=== PATIENT | female | born 1980 | race Hispanic/Latino ===

== ENCOUNTER 2017-04-02 06:56 | Emergency (ER) | payer SELFPAY ==
[2017-04-02 07:26] LABS: HCG,QUAL RESULT NEGATIVE (NEGATIVE)
[2017-04-02] MEDS ORDERED: ONDANSETRON HCL 4 MG/2 ML VIAL ONE (07:34)
[2017-04-02 07:35] LABS: APPEARANCE,URINE CLEAR (CLEAR); BILIRUBIN,URINE NEGATIVE (NEGATIVE); COLOR,URINE ORANGE (YELLOW); GLUCOSE, URINE (UA) 250 mg/dL (NEGATIVE); KETONES,URINE 5 mg/dL (NEGATIVE); LEUKOCYTE ESTERASE ,URINE MODERATE (NEGATIVE); NITRATE,URINE POSITIVE (NEGATIVE); OCCULT BLOOD,URINE LARGE (NEGATIVE); PROTEIN,URINE 100 (NEGATIVE); UROBILINOGEN,URINE >=8.0 mg/dL (0.2-1.0)
[2017-04-02] MEDS ORDERED: HYDROMORPHONE HCL 0.5 MG/0.5 ML ML ONE (07:35)
[2017-04-02 07:37] LABS: BASOPHILS % (AUTO) 0.8 % (0.0-5.0); EOSINOPHILS % (AUTO) 0.5 % (0.0-8.0); HEMATOCRIT 46.7 % (36-48); LYMPHOCYTES % (AUTO) 18.3 % (21.0-51.0); MEAN CORPUSCULAR HGB CONC 34.1 g/dL (32.0-36.0); MEAN CORPUSCULAR VOLUME 84.9 fL (79-99); MONOCYTES % (AUTO) 6.4 % (3.0-13.0); NUCLEATED RED BLOOD CELLS 0.1 % (0.0-0.19); PLATELET COUNT (AUTO) 334 K/uL (130-400); WHITE BLOOD COUNT (AUTO) 13.6 K/uL (4.8-10.8)
[2017-04-02 07:39] LABS: BACTERIA,URINE Rare /HPF (None Seen); SQUAMOUS EPITHELIAL CELL,UR Rare /LPF (0-2); WBC,URINE 0-1 /HPF (0-1)
[2017-04-02 09:00] LABS: CREATININE 0.8 mg/dL (0.5-1.5)
[2017-04-02 09:05] LABS: ALBUMIN 3.5 g/dL (3.5-5.0); BILIRUBIN,TOTAL 0.3 mg/dL (0.2-1.0); TOTAL PROTEIN, SERUM 7.6 g/dL (6.0-8.3)
[2017-04-02] MEDS ORDERED: LEVOFLOXACIN 500 MG TABLET ONE (09:26)
[2017-04-02] MEDS ORDERED: PHENAZOPYRIDINE HCL 200 MG TABLET ONE (09:27)
[2017-04-02] MEDS ORDERED: SODIUM CHLORIDE 0.9% 1000ML 1,000 ML IV ONE (09:31)
== END 2017-04-02 09:55 | disposition home or self-care (01) ==
LOC: EDH 06:56
DX: N10 Acute pyelonephritis (principal); Z87.442 Personal history of urinary calculi; Z90.49 Acquired absence of other specified parts of digestive tract; R42 Dizziness and giddiness
CPT/HCPCS: 36415; 74176; 80053; 81001; 81025; 85025; 87088; 96361; 96374; 96375; 99285; J1170; J2405; J7030

== ENCOUNTER 2018-06-08 12:43 | Emergency (ER) | payer OTHER | END 2018-06-08 13:49 | disposition home or self-care (01) | LOC: EDH 12:43 | DX: S13.4XXA Sprain of ligaments of cervical spine, initial encounter (principal); Z90.49 Acquired absence of other specified parts of digestive tract; Z98.51 Tubal ligation status; X58.XXXA Exposure to other specified factors, initial encounter; Y93.89 Activity, other specified; Y92.89 Other specified places as the place of occurrence of the external cause; Y99.8 Other external cause status | CPT/HCPCS: 99281 ==

== ENCOUNTER 2020-09-04 18:04 | Emergency (ER) | payer OTHER ==
[~2020-09-04] VITALS: Ht 157.5 cm; Wt 113.4 kg
[2020-09-04 18:25] LABS: APPEARANCE,URINE SLIGHTLY CLOUDY (CLEAR); BILIRUBIN,URINE Negative (NEGATIVE); COLOR,URINE Yellow (YELLOW); GLUCOSE, URINE (UA) Negative (NEGATIVE); KETONES,URINE Negative (NEGATIVE); LEUKOCYTE ESTERASE ,URINE Moderate (NEGATIVE); NITRATE,URINE Negative (NEGATIVE); OCCULT BLOOD,URINE Negative (NEGATIVE); PH,URINE 7.5 (5.0-8.0); PROTEIN,URINE Negative (NEGATIVE)
[2020-09-04 18:26] LABS: HCG,QUAL RESULT NEGATIVE (NEGATIVE)
[2020-09-04 18:35] LABS: BACTERIA,URINE Few /HPF (None Seen)
[2020-09-04 18:37] LABS: SQUAMOUS EPITHELIAL CELL,UR Moderate /HPF (0-2)
[2020-09-04 18:49] LABS: BASOPHILS % (AUTO) 0.3 % (0.0-5.0); EOSINOPHILS % (AUTO) 1.3 % (0.0-8.0); HEMATOCRIT 45.7 % (36-48); LYMPHOCYTES % (AUTO) 11.6 % (21.0-51.0); MEAN CORPUSCULAR HEMOGLOBIN 29.3 pg (27.0-33.0); MEAN CORPUSCULAR VOLUME 88.7 fL (79-99); MONOCYTES % (AUTO) 8.5 % (3.0-13.0); NEUTROPHILS % (AUTO) 77.3 % (40.0-77.0); PLATELET COUNT (AUTO) 399 K/uL (130-400); RED BLOOD CELL COUNT(AUTO) 5.15 MIL/uL (4.00-5.50); RED CELL DISTRIBUTION WIDTH 13.5 % (11.0-15.5); WHITE BLOOD COUNT (AUTO) 12.2 K/uL (4.8-10.8)
[2020-09-04 18:54] VITALS: BP 135/94
[2020-09-04] MEDS ORDERED: KETOROLAC 30MG VIAL (30MG/ML) ONE (18:55)
[2020-09-04 19:00] LABS: POTASSIUM 3.6 mmol/L (3.5-5.1)
[2020-09-04] MEDS ORDERED: KETOROLAC 30MG VIAL (30MG/ML) IV ONE (19:00)
[2020-09-04] MEDS ORDERED: ACETAMINOPHEN 500 MG TABLET PO ONE (19:00)
[2020-09-04] MEDS ORDERED: CEFTRIAXONE 1G VIAL IVP ONE (19:00)
[2020-09-04] MEDS ORDERED: 0.9%NACL 1000ML 1,000 ML IV ONE (19:00)
[2020-09-04 19:02] LABS: CRP QUANTITATIVE 54.2 mg/L (0.00-9.0)
[2020-09-04 19:05] LABS: ALBUMIN 3.4 g/dL (3.5-5.0); BILIRUBIN,TOTAL 0.2 mg/dL (0.2-1.0); TOTAL PROTEIN, SERUM 7.7 g/dL (6.0-8.3)
[2020-09-04] MEDS ORDERED: CEPH500B PO (19:58)
[2020-09-04] MEDS ORDERED: KETO10 PO (20:00)
[2020-09-04] MEDS ORDERED: ONDA4TAB10 PO (20:00)
[2020-09-04] MEDS ORDERED: TAMS-1 PO (20:21)
[2020-09-04 20:25] VITALS: BP 124/78
== END 2020-09-04 20:31 | disposition home or self-care (01) ==
LOC: EDH 18:04
DX: N20.0 Calculus of kidney (principal); N39.0 Urinary tract infection, site not specified; E66.9 Obesity, unspecified; Z79.899 Other long term (current) drug therapy; Z79.1 Long term (current) use of non-steroidal anti-inflammatories (NSAID)
CPT/HCPCS: 36415; 74176; 80053; 81001; 81025; 83605; 85025; 86140; 87040 ×2; 87088; 96361; 96374; 96375; 99284; J0696; J1885; J7030

== ENCOUNTER 2020-09-07 08:48 | Emergency (ER) | payer OTHER ==
[~2020-09-07] VITALS: Ht 157.5 cm; Wt 113.4 kg
[~2020-09-07 08:48] MED LIST: CEPH500B PO; KETO10 PO; ONDA4TAB10 PO; TAMS-1 PO
[2020-09-07 08:49] VITALS: BP 139/103
[2020-09-07] MEDS ORDERED: ONDANSETRON 4MG INJ ONE (10:40)
[2020-09-07] MEDS ORDERED: KETOROLAC 30MG VIAL (30MG/ML) ONE (10:40)
[2020-09-07] MEDS ORDERED: MORPHINE 4 MG SYG ONE (10:40)
[2020-09-07] MEDS ORDERED: KETOROLAC 30MG VIAL (30MG/ML) IV SCH (11:00)
[2020-09-07] MEDS ORDERED: MORPHINE 4 MG SYG IV SCH (11:00)
[2020-09-07] MEDS ORDERED: ONDANSETRON 4MG INJ IVP SCH (11:00)
[2020-09-07 11:18] LABS: BASOPHILS % (AUTO) 0.4 % (0.0-5.0); EOSINOPHILS % (AUTO) 0.5 % (0.0-8.0); HEMATOCRIT 47.8 % (36-48); LYMPHOCYTES % (AUTO) 31.5 % (21.0-51.0); MEAN CORPUSCULAR HEMOGLOBIN 29.2 pg (27.0-33.0); MEAN CORPUSCULAR HGB CONC 32.4 g/dL (32.0-36.0); MEAN CORPUSCULAR VOLUME 90.2 fL (79-99); NEUTROPHILS % (AUTO) 56.9 % (40.0-77.0); PLATELET COUNT (AUTO) 244 K/uL (130-400); RED CELL DISTRIBUTION WIDTH 13.8 % (11.0-15.5); WHITE BLOOD COUNT (AUTO) 5.7 K/uL (4.8-10.8)
[2020-09-07 11:25] LABS: CREATININE 0.9 mg/dL (0.5-1.5); POTASSIUM 3.6 mmol/L (3.5-5.1)
[2020-09-07 11:30] LABS: ALBUMIN 3.3 g/dL (3.5-5.0); BILIRUBIN,TOTAL 0.2 mg/dL (0.2-1.0); TOTAL PROTEIN, SERUM 7.5 g/dL (6.0-8.3)
[2020-09-07 13:41] VITALS: BP 114/56
[2020-09-07 14:24] LABS: APPEARANCE,URINE CLEAR (CLEAR); BILIRUBIN,URINE NEGATIVE (NEGATIVE); COLOR,URINE YELLOW (YELLOW); GLUCOSE, URINE (UA) NEGATIVE (NEGATIVE); KETONES,URINE NEGATIVE (NEGATIVE); LEUKOCYTE ESTERASE ,URINE NEGATIVE (NEGATIVE); NITRATE,URINE NEGATIVE (NEGATIVE); OCCULT BLOOD,URINE NEGATIVE (NEGATIVE); PROTEIN,URINE NEGATIVE (NEGATIVE); UROBILINOGEN,URINE 0.2 mg/dL (0.2-1.0)
[2020-09-07 16:10] VITALS: BP 111/48
[2020-09-07] MEDS ORDERED: MORPHINE 4 MG SYG IV ONE (16:30)
[2020-09-07] MEDS ORDERED: TRAM-355 PO (18:27)
[2020-09-07] MEDS ORDERED: PHEN-847 PO (18:27)
[2020-09-07 18:51] VITALS: BP 127/74
== END 2020-09-07 18:53 | disposition home or self-care (01) ==
LOC: EDH 08:48
DX: R33.9 Retention of urine, unspecified (principal); R11.2 Nausea with vomiting, unspecified; R50.9 Fever, unspecified; E66.9 Obesity, unspecified; Z87.442 Personal history of urinary calculi; Z79.1 Long term (current) use of non-steroidal anti-inflammatories (NSAID); Z79.899 Other long term (current) drug therapy
CPT/HCPCS: 36415; 51701; 80053; 81003; 83605; 85025; 87040 ×2; 96374; 96375; 96376; 99284; J1885; J2270 ×2; J2405

== ENCOUNTER 2025-01-24 16:18 | Emergency (ER) | payer SELFPAY ==
[~2025-01-24] VITALS: Ht 157.5 cm; Wt 102.1 kg
[~2025-01-24 16:18] MED LIST changes: +ONDA-243 PO; -ONDA4TAB10 PO; +PHEN-847 PO; -TAMS-1 PO; +TAMS-55 PO; +TRAM-543 PO
--- NOTE | 2025-01-24 17:34 | HMCIMG ---
EXAM: CT Head Without IV contrast. CLINICAL HISTORY: head injury, now vision changes TECHNIQUE: Axial computed tomography images of the head/brain without intravenous contrast. COMPARISON: None provided. FINDINGS: BRAIN: No evidence of acute hemorrhage. No mass lesion. No CT evidence for acute territorial infarct. No midline shift or extra-axial collections. VENTRICLES: No hydrocephalus. ORBITS: The orbits are unremarkable. SINUSES AND MASTOIDS: The paranasal sinuses and mastoid air cells are clear. BONES: No fracture. SOFT TISSUES: Unremarkable. IMPRESSION: No acute intracranial abnormality. /[place]
[2025-01-24] MEDS: HYDROcodone/APAP 5/325 1 TAB TABLET PO ONE (17:41)
--- NOTE | 2025-01-24 17:43 | ERN ---
ED Note History of Present Illness Stated Complaint: HEADACHE Chief Complaint: Headache Time Seen by MD: 16:33 Time Seen by Midlevel: 16:36 Dictation: 44-year-old female with a history of anxiety coming in with complaints of headache on the occipital area . He is four days ago she was scooting back and hit her back of the head on the cement wall and then when she was going to her car and stepped in she hit the frontal part of her head with a car frame. Denies any LOC, denies any blood thinner. Denies any nausea or vomiting. Allergies: Coded Allergies: No Known Drug Allergies (Unverified Allergy, Unknown, 08/22/13) Home Meds Active Scripts Tramadol HCl/Acetaminophen (Tramadol-Acetaminophn 37.5-325) 1 Each Tablet, 1 EACH PO TID for pain, #12 TAB Prov:MARLINE GRIFFIN MD 09/07/20 Phenazopyridine HCl (Pyridium) 200 Mg Tab, 200 MG PO TIDPC for painful urination, #6 TAB TAKE WITH FOOD TO PREVENT STOMACH UPSET. Prov:MARLINE GRIFFIN MD 09/07/20 Tamsulosin HCl (Flomax) 0.4 Mg Cap.er.24h, 0.4 MG PO DAILY, #30 CAPSULE. Prov:ANDREI HAMMOND 09/04/20 Ondansetron (Ondansetron Odt) 4 Mg Tab.rapdis, 4 MG PO TID, #21 TAB Prov:ANDREI HAMMOND 09/04/20 Ketorolac Tromethamine (Toradol) 10 Mg Tab, 10 MG PO TID, #12 TAB Prov:ANDREI HAMMOND 09/04/20 Cephalexin Monohydrate (Keflex) 500 Mg Cap, 500 MG PO TID, #21 CAP Prov:ANDREI HAMMOND 09/04/20 Past Medical History Past Medical History: Kidney Stone Surgical History: Appendectomy, Cholecystectomy, BTL Review of System Dictation Constitutional: Negative for fever,chills, and weight loss Eyes: Negative for injury, pain,redness, and discharge ENT: Negative for injury,pain or swelling Cardiovascular: Negative for chest pain, palpitations, and edema Respiratory: Negative for shortness of breath, cough, and wheezing, Abdomen/GI: Negative for abdominal pain, nausea, vomiting, diarrhea, and constipation Back: Negative for injury and pain : Negative for injury, bleeding and discharge MS/Extremity: Negative for injury and deformity Skin: Negative for rash, and discoloration Neuro: Positive for headache Psych: Negative for suicide ideation, homicidal ideation, and hallucinations Review of Systems: was completed Initial Vital Sign VS Vital Signs Date Time Temp Pulse Resp B/P (MAP) Pulse Ox O2 Delivery O2 Flow Rate FiO2 01/24/25 16:20 98.1 97 16 136/76 97 Room Air Physical Exam Dictation General: awake, alert, NAD Head/Face: Normocephalic, atraumatic Eyes: PERRL, EOMI, vision at baseline ENT: oral cavity clear, TMs clear, no signs of infection Neck: Trachea midline, supple, no nuchal rigidity Cardiovascular: RRR, normal S1/S2, No MRGs, no JVD Respiratory: CTAB, no respiratory distress, No rales or wheezes Abdomen: Soft, non-tender, non-distended, normal bowel sounds, no guarding or rebound. Skin: Warm, dry, normal turgor, no rash MS/Extremity: Pulses equal, no cyanosis, neurovascular intact, FROM Neuro: COAx4, GCS 15, strength 5/5, CN 2-12 intact, normal cerebellar exam, normal gait, Psych: Normal behavior, mood, and affect normal Results (Laboratory/Radiology) Labs Reviewed?: Yes CT Scan Comment: [address] [address] IMAGING REPORT Signed PATIENT: ROBIN LOUIS MR#: [id number] : 1980 SEX: F AGE: 44 LOCATION: [facility] ORDER 33 STATUS: REG ER REPORT#: [id number] SERVICE 33 REASON: head injury, now vision changes ORDERING PHYSICIAN: GILMA DA SILVA CNP PROCEDURE: HEAD WO - CT HEAD/BRAIN W/O CONTRAST EXAM: CT Head Without IV contrast. CLINICAL HISTORY: head injury, now vision changes TECHNIQUE: Axial computed tomography images of the head/brain without intravenous contrast. COMPARISON: None provided. FINDINGS: BRAIN: No evidence of acute hemorrhage. No mass lesion. No CT evidence for acute territorial infarct. No midline shift or extra-axial collections. VENTRICLES: No hydrocephalus. ORBITS: The orbits are unremarkable. SINUSES AND MASTOIDS: The paranasal sinuses and mastoid air cells are clear. BONES: No fracture. SOFT TISSUES: Unremarkable. IMPRESSION: No acute intracranial abnormality. /[place] DICTATED BY: PILY JAMES DO DATE: 01/24/251832 ELECTRONICALLY SIGNED BY: PILY JAMES DO DATE: 01/24/251832 ED Course ED Course Orders Procedure Category Date Status Time Ct Head/Brain W/O CT 01/24/25 Resulted Contrast 16:34 Hydrocodone/Apap PHA 01/24/25 Complete 5/325 ([place] 5/325mg) 17:00 Current Medications Medications (Trade) Dose Ordered Sig/Candi Route PRN Reason Start Time Stop Time Status Last Admin Dose Admin Acetaminophen/ Hydrocodone Bitart (NORco 5/325MG) 1 tab ONCE ONCE PO 01/24/25 17:00 01/24/25 17:01 DC Vital Signs Date Time Temp Pulse Resp B/P (MAP) Pulse Ox O2 Delivery O2 Flow Rate FiO2 01/24/25 16:20 98.1 97 16 136/76 97 Room Air Medical Decision Making MDM MDM: 44-year-old female with a history of anxiety coming in with complaints of headache on the occipital area . He is four days ago she was scooting back and hit her back of the head on the cement wall and then when she was going to her car and stepped in she hit the frontal part of her head with a car frame. Denies any LOC, denies any blood thinner. Denies any nausea or vomiting. CT scan of the head shows no acute finding. After pain medication patient has had improvement of symptoms. Patient remained hemodynamically stable in the ER with no focal neurological deficits noted at the time of my assessment. Discussed with the patient this could be a concussion and needs to follow up outpatient with the PCP. Educated to take [id number] medication like Tylenol or Motrin for pain control and to return to the hospital if he develops any severe headache, nausea or vomiting, unsteady gait, unilateral weakness numbness or tingling. Patient verbalized understanding, answered all questions. Differential diagnosis:, concussion, ICH, SDH Rationale: Tests considered and ordered secondary to shared decision making include: Previous outside records reviewed: Old ER visits. Risk of complication and/or morbidity or mortality of patient management: None Medications-Per medication reconciliation Need for hospitalization: Patient does not meet criteria for hospitalization. Need for emergency major/minor surgery: No There are no social concerns with this patient. Prescription drug management Prescriptions will include symptomatic care Patient's prior external medical records from other ER visits were reviewed by me as indicated. Prior testing and results from previous visits were reviewed. Prior tests were taken into account with medical decision making and resource utilization, independent historian/historians were used to obtain complete medical history. I independently interpreted the test that were performed, results were reviewed by me and considered findings on radiology if ordered. Medical management and examination interpretation discussions were had by me with other qualified healthcare professionals as indicated for the patient's care. DX & DISP Disposition: Discharge Departure Impression: Primary Impression: Head contusion Condition: Stable Additional Instructions: Take [id number] medications like Tylenol or Motrin for pain control. Return to the hospital if you develop any severe headaches, unsteady gait, nausea, vomiting, numbness tingling to one side of the extremity, slurred speech. Twenty follow up with your primary care provider. Referrals: SELF,REFERRAL (PCP) Time of Disposition: 17:42 I have reviewed the case, and I agree with, Diagnosis and Plan GILMA DA SILVA CNP Jan 24, 2025 17:43
[2025-01-24 17:56] VITALS: BP 136/73; PULSE 79; RESP 20; TEMP 98; O2SAT 99
== END 2025-01-24 17:57 | disposition home or self-care (01) ==
LOC: EDH 16:18
DX: S00.93XA Contusion of unspecified part of head, initial encounter (principal); F41.9 Anxiety disorder, unspecified; Z87.442 Personal history of urinary calculi; Z90.49 Acquired absence of other specified parts of digestive tract; Z79.891 Long term (current) use of opiate analgesic; Z79.1 Long term (current) use of non-steroidal anti-inflammatories (NSAID); Z98.51 Tubal ligation status; W22.01XA Walked into wall, initial encounter; Y93.89 Activity, other specified; Y92.89 Other specified places as the place of occurrence of the external cause; Y99.8 Other external cause status
CPT/HCPCS: 70450; 99284